=== PATIENT | female | born 1960 | race Caucasian/White ===

== ENCOUNTER 2024-10-02 00:33 | Outpatient (CLI) | payer MEDICARE, MEDICAID, SELFPAY ==
--- NOTE | 2024-10-02 12:58 | DI.CTLCSR_ITS ---
Exam(s) CT CHEST LUNG CANCER SCREEN EXAM: CT CHEST LUNG CANCER SCREEN CLINICAL HISTORY: Smoking history, Z78.891 TECHNIQUE: Imaging Protocol: Axial computed tomography images with coronal and sagittal reformatted images were created and reviewed. Low dose screening protocol. FINDINGS: Tracheobronchial tree: No bronchiectasis or mucus plugging. Mediastinum and Neisha: No dominant adenopathy or fluid collection. Pulmonary parenchyma: Mild ground-glass opacities in the right upper lobe. Ground-glass opacities an d a few small areas of nodularity in the right middle lobe is well as the right lower lobe which has the appearance of infectious or inflammatory pneumonitis. No consolidation or dominant measurable ma ss. Mild emphysematous changes at the lung apices.. No significant interstitial changes. Lung Nodules: Multiple micro nodules in the right middle and lower lobes. Pleura: No effusion. No pneumothorax. Heart: The heart is not dilated. Severe coronary artery calcifications are seen. Status post CABG. No pericardial effusion. Aorta: Thoracic aorta non-dilated. Moderate to severe atherosclerotic calcifications. Upper abdomen: Unremarkable. Bones: Unremarkable for age. Sternal wires. Soft Tissues: Unremarkable. IMPRESSION: Ground-glass and micronodular infiltrates in the right middle and lower lobes have the appearance of infectious or inflammatory pneumonitis. No suspicious pulmonary nodules are visible. Lung RADS Cat 2S - Benign Appearance / Behavior: Nodules with a very low likelihood of becoming a cli nically active caner due to size or lack of growth. Other: Clinically Significant or Potentially Clin ically Significant Findings (non lung cancer) Lung-RADS 1.0 CATEGORIES: Category 0 - Prior chest CT exam(s) being located for comparison. Category 1 - Annual screening in 12 months. No nodules or definitely benign nodules. Category 2 - Annual screening in 12 months. Benign appearance. Nodules with low likelihood of becomin g active cancer. Category 3 - 6-month follow-up. Probably benign. Short-term follow-up suggested. Nodules with low lik elihood of becoming active cancer. Category 4A - 3-month follow-up and CT/PET if >8 mm in size. Suspicious finding. Findings which requi re additional testing. Category 4B - Findings which require additional testing and tissue sampling. Category 4X - Category 3 or 4 nodules with additional features or imaging findings that increases the suspicion of malignancy. Modifier S- Potentially clinically significant findings (non lung cancer) Unexpected findings RADIATION DOSE DELIVERED: !Error Total DLP DATA REPOSITORY: All CT scans at this facility are submitted to the National Radiology Data Registry (NRDR) Dose Index Registry (DIR) with the [employer] (ACR). RADIATION OPTIMIZATION: All CT scans at this facility use at least one of these dose optimization te chniques: automated exposure control; mA and/or kV adjustment per patient size (includes targeted exa ms where dose is matched to clinical indication); or iterative reconstruction.
== END 2024-10-02 00:53 ==
PROVIDERS: PCP Family Medicine; Visit Provider Family Medicine
DX: Z12.31 Encounter for screening mammogram for malignant neoplasm of breast (principal); Z87.891 Personal history of nicotine dependence; R91.8 Other nonspecific abnormal finding of lung field
CPT/HCPCS: 71271

== ENCOUNTER 2025-01-30 14:50 | Outpatient (CLI) | payer MEDICARE, MEDICAID, SELFPAY ==
--- NOTE | 2025-01-30 13:36 | DI.US_ITS ---
APPROVED REPORT EXAM: Comprehensive 2D, Doppler, and color-flow Echocardiogram Patient Location: Out-Patient [facility] Operator: Anahi Devlin RDCS (AE) Indications: Cardiomyopathy, Systolic heart failure Other Information Study Quality: Poor. Technically limited study due to body habitus. Conclusion Technically difficult and suboptimal study Mildly dilated left ventricle. Estimated EF is 40-45 percent. There is an apical and anteroapical wall motion abnormality Right ventricle is not well-visualized but does not appear enlarged Both atria are grossly normal in size Within the limits of the study no significant valvular disease is identified Wall motion Left Ventricle Left ventricle is mildly dilated. Left ventricular systolic function is moderately decreased. There is normal left ventricular wall thickness. Regional wall motion abnormalities are noted. There is no ventricular septal defect visualized. LVEF is 40-45%. Right Ventricle Right ventricle is not well visualized. Right ventricular systolic function could not be assessed. Atria The left atrium size is normal. The right atrium size is normal. The interatrial septum is intact with no evidence for an atrial septal defect. Aortic Valve The aortic valve is normal in structure. Number of aortic valve leaflets could not be assessed. There is no aortic valvular stenosis. No aortic regurgitation is present. Mitral Valve The mitral valve is normal in structure. No evidence of mitral valve stenosis. Trace mitral regurgitation. Tricuspid Valve The tricuspid valve is normal in structure. There is no tricuspid valve stenosis. Trace tricuspid regurgitation. Unable to assess PA pressure. Pulmonic Valve The pulmonary valve is normal in structure. There is no pulmonic valvular stenosis. There is no pulmonic valvular regurgitation. Great Vessels The aortic root is normal in size. The ascending aorta is normal in size. Aortic arch is not well visualized. IVC is normal in size and collapses >50% with inspiration. Pericardium There is no pericardial effusion. 2D Dimensions IVSD d PLAX 0.85 cm F: 0.6-1.0 Ao Root d 2.67 cm F: 2.7 - 3.3 LVPW d PLAX 0.84 cm F: 0.6 - 1.0 Ao Asc Diam d 2.86 cm F: 2.3 - 3.1 LVID d PLAX 5.35 cm F: 3.8 - 5.2 LVDs 4.14 cm F: 2.2 - 3.5 LV EF Teichholz 45.1 % FS 22.60 % LV EDV (Teich) 138.6 mL LV ESV (Teich) 76.1 mL Auto EF LV EDV A4C 130.7 mL LV EDV A2C 144.5 mL LV EDV BP 137.1 mL LV ESV A4C 84.6 mL LV ESV A2C 86.1 mL LV ESV BP 85.9 mL LVEF(%) A4C 35.3 % LVEF(%) A2C 40.4 % LVEF(%) BP 37.3 % LV SV A4C 46.1 ml LV SV A2C 58.4 ml LV SV BP 51.2 ml LV CO A4C 3.1 L/min LV CO A2C 4.1 L/min LV CO BP 3.6 L/min HR A4C 68.03 BPM HR A2C 70.31 BPM LV EDV Index (BP) LA Volume LA Length A4C 5.0 cm LA Length A2C 5.1 cm LA Area A4C s 20.07 cm2 LA Area A2C s 20.22 cm2 LA Vol A4C A-L 68.73 mL LA Vol A2C A-L 67.69 mL LA Vol Biplane A-L 69.2 mL LA Vol/BSA A4C A-L LA Vol/BSA A2C A-L LA Vol/BSA BP A-L 32.7 mL/m2 LA Vol A4C MOD 66.0 mL LA Vol A2C MOD 66.6 mL LA Vol BP MOD 67.1 mL LV Diastology MV E' medial 0.056 (>0.07 m/s) MV E Vmax 0.82 (0.4-1.3 m/s) MV E/E' MED 14.63 (<14) MV A Vmax 1.00 (0.4-1.3 m/s) MV E' lateral 0.077 (>0.1 m/s) E/A Ratio 0.8 MV E/E' LAT 10.71 (<14) MV E' Average 0.066 m/s MV E/E'(average) 12.37 Aortic Valve AoV Vmax 1.25 m/s LVOT Vmax 0.99 m/s AoV Peak Grad 6.3 mmHg LVOT Peak Grad 3.9 mmHg AoV Area (Vmax) 2.44 cm2 LVOT VTI 0.198 m AoV VTI 0.273 m LVOT Mean Grad 2.3 mmHg AoV Mean Lion. 0.81 m/s LVOT SV 61.32 mL AoV Mean Grad 3.0 mmHg LVOT Diam s 1.95 cm AoV Area (VTI) 2.24 cm2 AV Regurg Peak Gr. 6.29 mmHg Velocity Ratio 0.79 Mitral Valve MV DT 240 (160-240 msec) MV Vmax TIPS 1.01 m/s MV Mean Grad 1.9 (<2mmHg) MV VTI 0.338 m Pulmonary Valve PV Vmax 0.90 (0.5-1.5 m/s) RVOT Vmax 0.81 m/s PV Peak Grad 3.3 mmHg RVOT Peak Gr. 2.6 mmHg PV Mean Lion 0.52 m/s RVOT VTI 0.198 m PV Mean Grad 1.3 mmHg RVOT Mean Gr. 1.5 mmHg
== END 2025-01-30 15:10 ==
LOC: DI 14:50
PROVIDERS: PCP Family Medicine; Visit Provider Internal Medicine Cardiovascular Disease
DX: I25.5 Ischemic cardiomyopathy (principal)
CPT/HCPCS: 93306